=== PATIENT | female | born 1995 | race Caucasian/White ===

== ENCOUNTER 2020-01-13 21:56 | Inpatient (IN) | payer OTHER ==
[2020-01-13] MEDS ORDERED: Sodium Chloride 0.9% 10 ML Syringe FLUSH PRN (22:26)
[2020-01-13] MEDS ORDERED: Lidocaine 1% 50 ML MDV INJECT PRN (22:26)
[2020-01-13] MEDS ORDERED: Carboprost Tromethamine 250 MCG/1 ML Amp IM PRN (22:26)
[2020-01-13] MEDS ORDERED: Nalbuphine 10 MG/1 ML Vial IVPUSH PRN (22:26)
[2020-01-13] MEDS ORDERED: Tranexamic Acid 1,000 MG in Sodium Chloride 0.9% 100 ML IV PRN (22:26)
[2020-01-13] MEDS ORDERED: Misoprostol 200 MCG Tab PO PRN (22:26)
[2020-01-13] MEDS ORDERED: Methylergonovine 0.2 MG/1 ML Amp IM PRN (22:26)
[2020-01-13] MEDS ORDERED: Sodium Chloride 0.9% 2.5 ML Syringe FLUSH PRN (22:26)
[2020-01-13] MEDS ORDERED: Sodium Chloride 0.9% 10 ML SDV IV PRN (22:26)
[2020-01-13] MEDS ORDERED: Water For Irrigation,Sterile 1,000 ML Container IRR PRN (22:26)
[2020-01-13] MEDS ORDERED: Butorphanol 1 MG/ML SDV IVPUSH PRN (22:26)
[2020-01-13] MEDS ORDERED: Oxytocin/0.9 % Sodium Chloride 30 UNIT/500 ML BAG IV SCH (22:30)
[2020-01-13] MEDS ORDERED: Lactated Ringers 1,000 ML IV SCH (22:30)
--- NOTE | 2020-01-13 22:52 | PCM.LDHP ---
L&D History of Present Illness - General Date of Service: 01/13/20 Admit Problem/Dx: Patient Status Order with Admit Dx/Problem 01/13/20 22:26 Patient Status [ADT] Routine Admission Diagnosis/Problem Admission Diagnosis/Problem Source of Information: Patient History Limitations: Reports: No Limitations - History of Present Illness Improves with: Reports: None Worsens with: Reports: None Associated Symptoms: Reports: N - Related Data Allergies/Adverse Reactions: Allergies Allergy/AdvReac Type Severity Reaction Status Date / Time amoxicillin Allergy Rash Verified 10/16/18 18:37 cephalexin [From Keflex] Allergy Rash Verified 10/16/18 18:37 metoclopramide [From Reglan] Allergy Rash Verified 10/16/18 18:37 morphine Allergy Rash Verified 10/16/18 18:37 Home Medications: Home Meds Acetaminophen [Tylenol Extra Strength] 1,000 mg PO Q6HR PRN 10/16/18 [History] Citalopram [Citalopram HBr] 20 mg PO DAILY 10/16/18 [History] Pnv No.103/Folic/Om3s/Fish Oil [ Gummies] 2 tab PO DAILY 10/16/18 [ History] Past Medical History HEENT History: Reports: None Cardiovascular History: Reports: None Respiratory History: Reports: None Gastrointestinal History: Reports: Other (See Below) Other Gastrointestinal History: History of ulcerative colitis with bleeding and had undergone colon removal at 15 y.0. 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 (See Below) Other OB/BYN History: Had PPH with the last delivery Musculoskeletal History: Reports: None Neurological History: Reports: None Psychiatric History: Reports: Anxiety Endocrine/Metabolic History: Reports: None Hematologic History: Reports: Blood Transfusion(s) Immunologic History: Reports: None Oncologic (Cancer) History: Reports: None - Infectious Disease History Infectious Disease History: Reports: None - Past Surgical History Head Surgeries/Procedures: Reports: None HEENT Surgical History: Reports: None Cardiovascular Surgical History: Reports: None Respiratory Surgical History: Reports: None GI Surgical History: Reports: Colon Female Surgical History: Reports: None Neurological Surgical History: Reports: None Musculoskeletal Surgical History: Reports: None Oncologic Surgical History: Reports: None Social & Family History - Family History HEENT: Reports: None Cardiac: Reports: None Respiratory: Reports: None GI: Reports: None : Reports: None OBGYN: Reports: None Musculoskeletal: Reports: None Neurological: Reports: None Psychiatric: Reports: None Endocrine/Metabolic: Reports: None Hematologic: Reports: None Immunologic: Reports: None Dermatologic: Reports: None Oncologic: Reports: Lung, Prostate - Caffeine Use Caffeine Use: Reports: Coffee, Soda H&P Review of Systems - Review of Systems: Review Of Systems: See Below General: Reports: No Symptoms HEENT: Reports: No Symptoms Pulmonary: Reports: No Symptoms Cardiovascular: Reports: No Symptoms Gastrointestinal: Reports: No Symptoms Genitourinary: Reports: No Symptoms Musculoskeletal: Reports: No Symptoms Skin: Reports: No Symptoms Psychiatric: Reports: No Symptoms Neurological: Reports: No Symptoms Hematologic/Lymphatic: Reports: No Symptoms Immunologic: Reports: No Symptoms L&D Exam - Exam Exam: See Below - Vital Signs Weight: 88.451 kg - OB Specific Contraction Intensity: Moderate Movement: Active Heart Tones: Present Presentation: Vertex - Dick Score Dick Score Cervix Position: Anterior Dick Score Consistency: Soft Dick Score Effacement: >80% Dick Score Dilation: > 5 cm Dick Score 's Station: -1 ,0 Dick Score Total: 12 - Exam General: Alert, Oriented HEENT: PERRLA, Conjunctiva Clear, EACs Clear, EOMI, Hearing Intact, Mucosa Moist & [place], Nares Patent, Normal Nasal Septum, Posterior Pharynx Clear, TMs Clear Neck: Supple, Trachea Midline Lungs: Clear to Auscultation, Normal Respiratory Effort Cardiovascular: Regular Rate, Regular Rhythm GI/Abdominal Exam: Normal Bowel Sounds, Soft, Non-Tender, No Organomegaly, No Distention, No Abnormal Bruit, No Mass, Pelvis Stable Rectal Exam: Normal Exam, Normal Rectal Tone Genitourinary: Normal external exam, Normal bimanual exam, Normal speculum exam Back Exam: Normal Inspection, Full Range of Motion Extremities: Normal Inspection, Normal Range of Motion, Non-Tender, No Pedal Edema, Normal Capillary Refill Skin: Warm, Dry, Intact Neurological: Cranial Nerves Intact, Reflexes Equal Bilateral Psychiatric: Alert, Normal Affect, Normal Mood Problem List Initiated/Reviewed/Updated: Yes Orders Last 24hrs: Active Orders 24 hr Category Date Time Status Patient Status [ADT] Routine ADT 01/13/20 22:26 Active Heart Tones [RC] CONTINUOUS Care 01/13/20 22:26 Active Non Stress Test [RC] PER UNIT ROUTINE Care 01/13/20 22:26 Active May Shower [RC] ASDIRECTED Care 01/13/20 22:26 Active Notify Provider [RC] PRN Care 01/13/20 22:26 Active Up ad Aranza [RC] ASDIRECTED Care 01/13/20 22:26 Active Vaginal Exam [RC] PRN Care 01/13/20 22:26 Active Vital Signs [RC] PER UNIT ROUTINE Care 01/13/20 22:26 Active CBC W/O DIFF,HEMOGRAM [HEME] Routine Lab 01/13/20 22:26 Ordered RPR (SYPHILIS SERO) W/ RFLX [REF] Routine Lab 01/13/20 22: Ordered TYPE AND SCREEN [BBK] Routine Lab 01/13/20 22:26 Ordered Butorphanol [Stadol] Med 01/13/20 22:26 Active 1 mg IVPUSH Q1H PRN Carboprost Tromethamine [Hemabate DS] Med 01/13/20 22:26 Active 250 mcg IM ASDIRECTED PRN Lactated Ringers [Ringers, Lactated] 1,000 ml Med 01/13/20 22:30 Active IV ASDIRECTED Lidocaine 1% [Xylocaine 1%] Med 01/13/20 22:26 Active 50 ml INJECT ONETIME PRN Methylergonovine [Methergine] Med 01/13/20 22:26 Active 0.2 mg IM ASDIRECTED PRN Nalbuphine [Nubain] Med 01/13/20 22:26 Active 10 mg IVPUSH Q1H PRN Oxytocin/0.9 % Sodium Chloride [Oxytocin 30 Unit/500 ML Med 01/13/20 22:30 Active -NS] 30 unit in 500 ml IV TITRATE Sodium Chloride 0.9% [Normal Saline] Med 01/13/20 22:26 Active 10 ml IV ASDIRECTED PRN Sodium Chloride 0.9% [Saline Flush] Med 01/13/20 22:26 Active 10 ml FLUSH ASDIRECTED PRN Sodium Chloride 0.9% [Saline Flush] Med 01/13/20 22:26 Active 2.5 ml FLUSH ASDIRECTED PRN Tranexamic Acid [Cyklokapron] 1,000 mg Med 01/13/20 22:26 Active Sodium Chloride 0.9% [Normal Saline] 100 ml IV ONETIME Water For Irrigation,Sterile [Sterile Water for Med 01/13/20 22:26 Active Irrigation] 1,000 ml IRR ASDIRECTED PRN miSOPROStoL [Cytotec] Med 01/13/20 22:26 Active 200 mcg PO ONETIME PRN Scalp Electrode [WOMSER] Per Unit Routine Oth 01/13/20 22:26 Ordered Peripheral IV Insertion Adult [OM.PC] Routine Oth 01/13/20 22:26 Ordered Resuscitation Status Routine Resus Stat 01/13/20 22:26 Ordered Medication Orders Butorphanol Tartrate (Stadol) 1 mg IVPUSH Q1H PRN PRN Reason: Pain Carboprost Tromethamine (Hemabate Ds) 250 mcg IM ASDIRECTED PRN PRN Reason: Post Hemorrhage Lactated Ringer's (Ringers, Lactated) 1,000 mls @ 150 mls/hr IV ASDIRECTED TAVARES Oxytocin/Sodium Chloride (Oxytocin 30 Unit/500 Ml-Ns) 30 unit in 500 mls @ 500 mls/hr IV TITRATE TAVARES Tranexamic Acid 1,000 mg/ (Sodium Chloride) 110 mls @ 660 mls/hr IV ONETIME PRN PRN Reason: Bleeding Lidocaine HCl (Xylocaine 1%) 50 ml INJECT ONETIME PRN PRN Reason: Laceration repair Methylergonovine Maleate (Methergine) 0.2 mg IM ASDIRECTED PRN PRN Reason: Post Hemorrhage Misoprostol (Cytotec) 200 mcg PO ONETIME PRN PRN Reason: Post Hemorrhage Nalbuphine HCl (Nubain) 10 mg IVPUSH Q1H PRN PRN Reason: Pain (severe 7-10) Sodium Chloride (Saline Flush) 10 ml FLUSH ASDIRECTED PRN PRN Reason: Keep Vein Open Sodium Chloride (Saline Flush) 2.5 ml FLUSH ASDIRECTED PRN PRN Reason: Keep Vein Open Sodium Chloride (Normal Saline) 10 ml IV ASDIRECTED PRN PRN Reason: IV Use Sterile Water (Sterile Water For Irrigation) 1,000 ml IRR ASDIRECTED PRN PRN Reason: delivery Assessment/Plan Comment:: IUP term in active labor.
--- NOTE | 2020-01-13 23:02 | PCM.PREANE ---
Preanesthetic Assessment - Anesthesia/Transfusion/Family Hx Anesthesia History: Prior Anesthesia Without Reaction Family History of Anesthesia Reaction: No Transfusion History: Prior Transfusion Without Reaction Type of Transfusion Reactions: Reports: Unknown Intubation History: Unknown - Review of Systems General: No Symptoms Pulmonary: No Symptoms Cardiovascular: No Symptoms Gastrointestinal: No Symptoms Neurological: No Symptoms Other: Reports: None - Physical Assessment Height: 5 ft 10 in Weight: 88.451 kg ASA Class: 2 Mental Status: Alert & Oriented x3 Airway Class: Mallampati = 2 Dentition: Reports: Normal Dentition Thyro-Mental Finger Breadths: 3 Mouth Opening Finger Breadths: 3 ROM/Head Extension: Full Lungs: Clear to Auscultation, Normal Respiratory Effort Cardiovascular: Regular Rate, Regular Rhythm - Allergies Allergies/Adverse Reactions: Allergies Allergy/AdvReac Type Severity Reaction Status Date / Time amoxicillin Allergy Rash Verified 10/16/18 18:37 cephalexin [From Keflex] Allergy Rash Verified 10/16/18 18:37 metoclopramide [From Reglan] Allergy Rash Verified 10/16/18 18:37 morphine Allergy Rash Verified 10/16/18 18:37 - Acknowledgements Anesthesia Type Planned: Spinal, Epidural Pt an Appropriate Candidate for the Planned Anesthesia: Yes Alternatives and Risks of Anesthesia Discussed w Pt/Guardian: Yes Pt/Guardian Understands and Agrees with Anesthesia Plan: Yes PreAnesthesia Questionnaire HEENT History: Reports: None Cardiovascular History: Reports: None Respiratory History: Reports: None Gastrointestinal History: Reports: Other (See Below) Other Gastrointestinal History: History of ulcerative colitis with bleeding and had undergone colon removal at 15 y.0. 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 (See Below) : 5 Para: 4 LMP (Approximate): Other OB/BYN History: Had PPH with the last delivery Musculoskeletal History: Reports: None Neurological History: Reports: None Psychiatric History: Reports: Anxiety Endocrine/Metabolic History: Reports: None Hematologic History: Reports: Blood Transfusion(s) Immunologic History: Reports: None Oncologic (Cancer) History: Reports: None Dermatologic History: Reports: None - Infectious Disease History Infectious Disease History: Reports: None - Past Surgical History Head Surgeries/Procedures: Reports: None HEENT Surgical History: Reports: None Cardiovascular Surgical History: Reports: None Respiratory Surgical History: Reports: None GI Surgical History: Reports: Colon (Resection for UC) Female Surgical History: Reports: None Neurological Surgical History: Reports: None Musculoskeletal Surgical History: Reports: None Oncologic Surgical History: Reports: None - HOME MEDS Home Medications: Home Meds Acetaminophen [Tylenol Extra Strength] 1,000 mg PO Q6HR PRN 10/16/18 [History] Citalopram [Citalopram HBr] 20 mg PO DAILY 10/16/18 [History] Pnv No.103/Folic/Om3s/Fish Oil [ Gummies] 2 tab PO DAILY 10/16/18 [ History] - CURRENT (IN HOUSE) MEDS Current Meds: Current Medications Butorphanol Tartrate (Stadol) 1 mg IVPUSH Q1H PRN PRN Reason: Pain Carboprost Tromethamine (Hemabate Ds) 250 mcg IM ASDIRECTED PRN PRN Reason: Post Hemorrhage Lactated Ringer's (Ringers, Lactated) 1,000 mls @ 150 mls/hr IV ASDIRECTED TAVARES Oxytocin/Sodium Chloride (Oxytocin 30 Unit/500 Ml-Ns) 30 unit in 500 mls @ 500 mls/hr IV TITRATE TAVARES Tranexamic Acid 1,000 mg/ (Sodium Chloride) 110 mls @ 660 mls/hr IV ONETIME PRN PRN Reason: Bleeding Lidocaine HCl (Xylocaine 1%) 50 ml INJECT ONETIME PRN PRN Reason: Laceration repair Methylergonovine Maleate (Methergine) 0.2 mg IM ASDIRECTED PRN PRN Reason: Post Hemorrhage Misoprostol (Cytotec) 200 mcg PO ONETIME PRN PRN Reason: Post Hemorrhage Nalbuphine HCl (Nubain) 10 mg IVPUSH Q1H PRN PRN Reason: Pain (severe 7-10) Sodium Chloride (Saline Flush) 10 ml FLUSH ASDIRECTED PRN PRN Reason: Keep Vein Open Sodium Chloride (Saline Flush) 2.5 ml FLUSH ASDIRECTED PRN PRN Reason: Keep Vein Open Sodium Chloride (Normal Saline) 10 ml IV ASDIRECTED PRN PRN Reason: IV Use Sterile Water (Sterile Water For Irrigation) 1,000 ml IRR ASDIRECTED PRN PRN Reason: delivery
[2020-01-13] MEDS ORDERED: fentaNYL 100 MCG/2 ML SDV ONE (23:07)
--- NOTE | 2020-01-14 01:31 | OR ---
SURGEON: Antonio Lomax MD DATE OF PROCEDURE: Ms. Milton is 24 years old. She is para 4-0-0-4. She was 39 plus weeks. She was followed in our clinic primarily by our nurse engineering production liaison. The patient had no complication, and her GBS status is negative. She is admitted in active labor. At the time of the admission, she is 7 cm, complete, vertex, and -3. The patient is having regular contractions. She had an intrathecal anesthesia for labor analgesia, and she had an artificial rupture of the membrane by me with meconium-stained amniotic fluid noted, and the patient became complete-complete and proceeded to push, and she accomplished normal spontaneous vaginal delivery of a female fetus, cried immediately. scores reported to be 8 and 9. The weight is not available. The perineum was intact. There was no need for episiotomy. The placenta delivered without any problem. Estimated blood loss 250 to 300 mL. There were no complications. The heart rate was category I. There was no complication in the process of labor and delivery in this patient. ETHAN / TAWANDA /[id number]
[2020-01-14] MEDS ORDERED: Docusate Sodium 100 MG Cap PO PRN (02:16)
[2020-01-14] MEDS ORDERED: Lanolin 100% Cream 7 GM Tube TOP PRN (02:16)
[2020-01-14] MEDS ORDERED: Ibuprofen 400 MG Tab PO PRN (02:16)
[2020-01-14] MEDS ORDERED: Witch Hazel Medicated Pads 40/Jar TOP PRN (02:16)
[2020-01-14] MEDS ORDERED: Acetaminophen 500 MG Tab PO PRN ×2 (02:16)
[2020-01-14] MEDS ORDERED: Benzocaine/Menthol 20%-0.5% Spray 78 GM Cannister TOP PRN (02:16)
[2020-01-14] MEDS ORDERED: Bisacodyl 10 MG Supp RECTAL PRN (02:16)
[2020-01-14] MEDS: Ibuprofen 800 MG Tab PO PRN ×3 (04:46→16:24)
--- NOTE | 2020-01-14 07:23 | PCM48HPAN ---
Post Anesthesia Note - EVALUATION WITHIN 48HRS OF ANESTHETIC Vital Signs in Normal Range: Yes Patient Participated in Evaluation: Yes Respiratory Function Stable: Yes Airway Patent: Yes Cardiovascular Function Stable: Yes Hydration Status Stable: Yes Pain Control Satisfactory: Yes Nausea and Vomiting Control Satisfactory: Yes Mental Status Recovered: Yes Vital Signs: Last Vital Signs Temp 97.9 F 01/14/20 04:45 Pulse 64 01/14/20 04:45 Resp 16 01/14/20 04:45 BP 110/61 01/14/20 04:45 Pulse Ox 97 01/14/20 04:45
--- NOTE | 2020-01-14 09:00 | PCM.SN ---
- Free Text/Narrative Note: Karine is a 24 yo S/P an uncomplicated 01/14/2020 @ 0002 to a viable and vigorous NBF who is EBFing without issues/problems/concerns. O+/RI/ GBS neg. Patient is resting comfortably in bed with spouse, at bedside in bassinet. VSS, ROS consistent with normal course. Vaginal bleeding, moderate rubra, no clots. No SOB, HAs, chest pain, edema, or other problems or concerns. Mild uterine cramping alleviated by ibuprofen and rest. Patient eating, voiding, ambulating independently. Patient has not questions, comments, or concerns at this time. Plan to continue normal plan of care and D/C home in am.
[2020-01-15] MEDS: Ibuprofen 800 MG Tab PO PRN ×2 (00:33→08:01)
--- NOTE | 2020-01-15 08:03 | PCM.DCSUM1 ---
Discharge Summary - Hospital Course Free Text/Narrative:: Discharge home with . Follow up in 6 weeks for visit. Diagnosis: Stroke: No Modified Lamoure Scale: No Symptoms at All Modified Yan Scale Score: 0 - Discharge Data Discharge Date: 01/15/20 Discharge Disposition: Home, Self-Care 01 Condition: Good - Referral to Home Health Primary Care Physician: PCP None - Discharge Diagnosis/Problem(s) (1) (normal spontaneous vaginal delivery) SNOMED Code(s): 89389210, [id number] ICD Code: O80 - ENCOUNTER FOR FULL-TERM UNCOMPLICATED DELIVERY Status: Acute Priority: High Current Visit: No (2) Supervision of normal IUP (intrauterine ) in multigravida SNOMED Code(s): 781597928, 891289592, 911541108 ICD Code: Z34.80 - ENCOUNTER FOR SUPRVSN OF NORMAL , UNSP TRIMESTER Status: Acute Priority: High Current Visit: No Qualifiers: Trimester: third trimester Qualified Code(s): Z34.83 - Encounter for supervision of other normal , third trimester - Patient Instructions Diet: Usual Diet as Tolerated Activity: As Tolerated, No Strenuous Activities, Rest and Relax Today Driving: May Drive Today Showering/Bathing: May Shower Notify Provider of: Fever, Increased Pain, Swelling and Redness, Nausea and/or Vomiting Other/Special Instructions: Discharge home with . Follow up in 6 weeks for visit. - Discharge Plan *PRESCRIPTION DRUG MONITORING PROGRAM REVIEWED*: Not Applicable *COPY OF PRESCRIPTION DRUG MONITORING REPORT IN PATIENT BUBBA: Not Applicable Home Medications: Home Meds Acetaminophen [Tylenol Extra Strength] 1,000 mg PO Q6HR PRN 10/16/18 [History] Citalopram [Citalopram HBr] 20 mg PO DAILY 10/16/18 [History] Pnv No.103/Folic/Om3s/Fish Oil [ Gummies] 2 tab PO DAILY 10/16/18 [ History] Referrals: [facility] [Outside] Antonio Lomax MD [Physician] - 02/25/20 1:30 pm - Discharge Summary/Plan Comment DC Time >30 min.: Yes - General Info Date of Service: 01/15/20 Admission Dx/Problem (Free Text: Patient Status Order with Admit Dx/Problem 01/13/20 22:26 Patient Status [ADT] Routine Admission Diagnosis/Problem Admission Diagnosis/Problem Functional Status: Reports: Pain Controlled, Tolerating Diet, Ambulating, Urinating - Review of Systems General: Reports: No Symptoms HEENT: Reports: No Symptoms Pulmonary: Reports: No Symptoms Cardiovascular: Reports: No Symptoms Gastrointestinal: Reports: No Symptoms Genitourinary: Reports: No Symptoms Musculoskeletal: Reports: No Symptoms Skin: Reports: No Symptoms Neurological: Reports: No Symptoms Psychiatric: Reports: No Symptoms - Patient Data Vitals - Most Recent: Last Vital Signs Temp 36.4 C 01/15/20 05:01 Pulse 76 01/15/20 05:01 Resp 16 01/15/20 05:01 BP 109/68 01/15/20 05:01 Pulse Ox 97 01/15/20 05:01 Weight - Most Recent: 88.451 kg Lab Results - Last 24 hrs: Laboratory Results - last 24 hr 01/15/20 Range/Units 05:33 Hgb 9.7 L (12.0-16.0) g/dL Hct 29.7 L (36.0-46.0) % Med Orders - Current: Current Medications Acetaminophen (Tylenol Extra Strength) 500 mg PO Q4H PRN PRN Reason: Pain Acetaminophen (Tylenol Extra Strength) 1,000 mg PO Q4H PRN PRN Reason: Pain Benzocaine/Menthol (Dermoplast Pain Relief 20%-0.5% Joshua) 78 gm TOP ASDIRECTED PRN PRN Reason: Perineal Comfort Measure Bisacodyl (Dulcolax) 10 mg RECTAL ONETIME PRN PRN Reason: Constipation Docusate Sodium (Colace) 100 mg PO BID PRN PRN Reason: Constipation Emollient Ointment (Lansinoh Hpa) 0 gm TOP ASDIRECTED PRN PRN Reason: Sore Nipples Ibuprofen (Motrin) 400 mg PO Q4H PRN PRN Reason: Pain Ibuprofen (Motrin) 800 mg PO Q6H PRN PRN Reason: Pain Last Admin: 01/15/20 00:33 Dose: 800 mg Witch Chelle (Tucks) 1 pad TOP ASDIRECTED PRN PRN Reason: comfort care Discontinued Medications Butorphanol Tartrate (Stadol) 1 mg IVPUSH Q1H PRN PRN Reason: Pain Stop: 01/14/20 00:05 Carboprost Tromethamine (Hemabate Ds) 250 mcg IM ASDIRECTED PRN PRN Reason: Post Hemorrhage Stop: 01/14/20 00:05 Fentanyl (Sublimaze) Confirm Administered Dose 100 mcg .ROUTE .STK-MED ONE Stop: 01/13/20 23:08 Lactated Ringer's (Ringers, Lactated) 1,000 mls @ 150 mls/hr IV ASDIRECTED TAVARES Stop: 01/14/20 00:05 Last Admin: 01/13/20 22:42 Dose: 999 mls/hr Oxytocin/Sodium Chloride (Oxytocin 30 Unit/500 Ml-Ns) 30 unit in 500 mls @ 500 mls/hr IV TITRATE TAVARES Stop: 01/14/20 00:05 Last Admin: 01/14/20 00:05 Dose: 500 mls/hr Tranexamic Acid 1,000 mg/ (Sodium Chloride) 110 mls @ 660 mls/hr IV ONETIME PRN PRN Reason: Bleeding Stop: 01/14/20 00:05 Lidocaine HCl (Xylocaine 1%) 50 ml INJECT ONETIME PRN PRN Reason: Laceration repair Stop: 01/14/20 00:05 Methylergonovine Maleate (Methergine) 0.2 mg IM ASDIRECTED PRN PRN Reason: Post Hemorrhage Stop: 01/14/20 00:05 Misoprostol (Cytotec) 200 mcg PO ONETIME PRN PRN Reason: Post Hemorrhage Stop: 01/14/20 00:05 Nalbuphine HCl (Nubain) 10 mg IVPUSH Q1H PRN PRN Reason: Pain (severe 7-10) Stop: 01/14/20 00:05 Sodium Chloride (Saline Flush) 10 ml FLUSH ASDIRECTED PRN PRN Reason: Keep Vein Open Stop: 01/14/20 00:05 Sodium Chloride (Saline Flush) 2.5 ml FLUSH ASDIRECTED PRN PRN Reason: Keep Vein Open Stop: 01/14/20 00:05 Sodium Chloride (Normal Saline) 10 ml IV ASDIRECTED PRN PRN Reason: IV Use Stop: 01/14/20 00:05 Sterile Water (Sterile Water For Irrigation) 1,000 ml IRR ASDIRECTED PRN PRN Reason: delivery Stop: 01/14/20 00:05 - Exam General: Reports: Alert, Oriented, Cooperative, No Acute Distress Lungs: Reports: Clear to Auscultation, Normal Respiratory Effort Cardiovascular: Reports: Regular Rate, Regular Rhythm GI/Abdominal Exam: Soft, Non-Tender (Female) Exam: Deferred, Vaginal Bleeding Rectal (Female) Exam: Deferred Back Exam: Reports: Normal Inspection, Full Range of Motion Extremities: Normal Inspection, Normal Range of Motion, Non-Tender, No Pedal Edema Skin: Reports: Warm, Dry, Intact Neurological: Reports: No New Focal Deficit, Normal Speech, Normal Tone, Strength Equal Bilateral, Sensation Intact Psy/Mental Status: Reports: Alert, Normal Affect, Normal Mood
== END 2020-01-15 13:18 | disposition home or self-care (01) | DRG 807 ==
LOC: MW.OBCHECK 21:56 → MW.OB 22:26 → OBSVTOIN 01-14 00:02 → MW.OB 01-14 03:20
PROVIDERS: ADMIT Obstetrics & Gynecology; ATTEND Obstetrics & Gynecology
PROC: 10E0XZZ Delivery of Products of Conception, External Approach (ICD-10-PCS; principal; 2020-01-14)
PROC: 10907ZC Drainage of Amniotic Fluid, Therapeutic from Products of Conception, Via Natural or Artificial Opening (ICD-10-PCS; 2020-01-14)
PROC: 3E0R3BZ Introduction of Anesthetic Agent into Spinal Canal, Percutaneous Approach (ICD-10-PCS; 2020-01-14)
DX: O99.344 Other mental disorders complicating childbirth (principal); Z37.0 Single live birth; F41.9 Anxiety disorder, unspecified; O77.0 Labor and delivery complicated by meconium in amniotic fluid; Z3A.39 39 weeks gestation of pregnancy
CPT/HCPCS: 01967; 36415; 51701; 59025; 59409; 85014; 85018; 85027; 86592; 86850; 86870; 86900; 86901; 86902; 86920; 86921; 86922; A9270-GY; J2590; J3010; J7120

== ENCOUNTER 2021-09-28 05:19 | Inpatient (IN) | payer BC ==
--- NOTE | 2021-09-28 05:43 | PCM.LDHP ---
L&D History of Present Illness - General Date of Service: 09/28/21 Admit Problem/Dx: Admission Diagnosis/Problem Admission Diagnosis/Problem Source of Information: Patient History Limitations: Reports: No Limitations - History of Present Illness Improves with: Reports: None Worsens with: Reports: None Associated Symptoms: Reports: N - Related Data Allergies/Adverse Reactions: Allergies Allergy/AdvReac Type Severity Reaction Status Date / Time amoxicillin Allergy Rash Verified 10/16/18 18:37 cephalexin [From Keflex] Allergy Rash Verified 10/16/18 18:37 metoclopramide [From Reglan] Allergy Rash Verified 10/16/18 18:37 morphine Allergy Rash Verified 10/16/18 18:37 Home Medications: Home Meds Acetaminophen [Tylenol Extra Strength] 1,000 mg PO Q6HR PRN 10/16/18 [History] Citalopram [Citalopram HBr] 20 mg PO DAILY 10/16/18 [History] Pnv No.103/Folic/Om3s/Fish Oil [ Gummies] 2 tab PO DAILY 10/16/18 [History] Past Medical History HEENT History: Reports: Impaired Vision Cardiovascular History: Reports: None Respiratory History: Reports: None Gastrointestinal History: Reports: Other (See Below) Other Gastrointestinal History: History of ulcerative colitis with bleeding and had undergone colon removal at 15 y.0. Genitourinary History: Reports: None LEAD COOK History: Reports: , Other (See Below) Other OB/BYN History: Had PPH with the last delivery Musculoskeletal History: Reports: None Neurological History: Reports: Migraines Psychiatric History: Reports: Anxiety Endocrine/Metabolic History: Reports: None Hematologic History: Reports: Blood Transfusion(s) Immunologic History: Reports: None Oncologic (Cancer) History: Reports: None Dermatologic History: Reports: None - Infectious Disease History Infectious Disease History: Reports: Chicken Pox - Past Surgical History Head Surgeries/Procedures: Reports: None HEENT Surgical History: Reports: None Cardiovascular Surgical History: Reports: None Respiratory Surgical History: Reports: None GI Surgical History: Reports: Colon Female Surgical History: Reports: None Neurological Surgical History: Reports: None Musculoskeletal Surgical History: Reports: None Oncologic Surgical History: Reports: None Social & Family History - Family History HEENT: Reports: None Cardiac: Reports: Heart Murmur Respiratory: Reports: None GI: Reports: None : Reports: None OBGYN: Reports: Musculoskeletal: Reports: None Neurological: Reports: Dementia, Migraines Psychiatric: Reports: ADD, Anxiety, Depression Endocrine/Metabolic: Reports: None Hematologic: Reports: None Immunologic: Reports: None Dermatologic: Reports: None Oncologic: Reports: Lung, Prostate - Caffeine Use Caffeine Use: Reports: Coffee, Soda H&P Review of Systems - Review of Systems: Review Of Systems: See Below General: Reports: No Symptoms HEENT: Reports: No Symptoms Pulmonary: Reports: No Symptoms Cardiovascular: Reports: No Symptoms Gastrointestinal: Reports: No Symptoms Genitourinary: Reports: No Symptoms Musculoskeletal: Reports: No Symptoms Skin: Reports: No Symptoms Psychiatric: Reports: No Symptoms Neurological: Reports: No Symptoms Hematologic/Lymphatic: Reports: No Symptoms Immunologic: Reports: No Symptoms L&D Exam - Exam Exam: See Below - OB Specific Contraction Intensity: Moderate Movement: Active Heart Tones: Present Presentation: Vertex - Dick Score Dick Score Cervix Position: Anterior Dick Score Consistency: Soft Dick Score Effacement: >80% Dick Score Dilation: > 5 cm Dick Score 's Station: -2 Dick Score Total: 11 - Exam General: Alert, Oriented HEENT: PERRLA, Conjunctiva Clear, EACs Clear, EOMI, Hearing Intact, Mucosa Moist & [place], Nares Patent, Normal Nasal Septum, Posterior Pharynx Clear, TMs Clear Neck: Supple, Trachea Midline Lungs: Clear to Auscultation, Normal Respiratory Effort Cardiovascular: Regular Rate, Regular Rhythm GI/Abdominal Exam: Normal Bowel Sounds, Soft, Non-Tender, No Organomegaly, No Distention, No Abnormal Bruit, No Mass, Pelvis Stable Rectal Exam: Normal Exam, Normal Rectal Tone Genitourinary: Normal external exam, Normal bimanual exam, Normal speculum exam Back Exam: Normal Inspection, Full Range of Motion Extremities: Normal Inspection, Normal Range of Motion, Non-Tender, No Pedal Edema, Normal Capillary Refill Skin: Warm, Dry, Intact Neurological: Cranial Nerves Intact, Reflexes Equal Bilateral Psychiatric: Alert, Normal Affect, Normal Mood Problem List Initiated/Reviewed/Updated: Yes Assessment/Plan Comment:: Term in active labor.
[2021-09-28] MEDS: Lactated Ringers 1,000 ML IV SCH ×3 (05:50→09:36)
[2021-09-28] MEDS ORDERED: Lidocaine 1% 50 ML MDV INJECT PRN (05:56)
[2021-09-28] MEDS ORDERED: Nalbuphine 10 MG/1 ML Vial IVPUSH PRN (05:56)
[2021-09-28] MEDS ORDERED: Misoprostol 200 MCG Tab PO PRN (05:56)
[2021-09-28] MEDS ORDERED: Sodium Chloride 0.9% 20 ML SDV IV PRN (05:56)
[2021-09-28] MEDS ORDERED: Methylergonovine 0.2 MG/1 ML Amp IM PRN (05:56)
[2021-09-28] MEDS ORDERED: Carboprost Tromethamine 250 MCG/1 ML Amp IM PRN (05:56)
[2021-09-28] MEDS ORDERED: Sodium Chloride 0.9% 2.5 ML Syringe FLUSH PRN (05:56)
[2021-09-28] MEDS ORDERED: Ondansetron 4 MG/2 ML SDV IVPUSH PRN (05:56)
[2021-09-28] MEDS ORDERED: Water For Irrigation,Sterile 1,000 ML Container IRR PRN (05:56)
[2021-09-28] MEDS ORDERED: Sodium Chloride 0.9% 10 ML Syringe FLUSH PRN (05:56)
[2021-09-28] MEDS ORDERED: Butorphanol 1 MG/ML SDV IVPUSH PRN (05:56)
[2021-09-28] MEDS ORDERED: Tranexamic Acid 1,000 MG in Sodium Chloride 0.9% 100 ML IV PRN (05:56)
[2021-09-28] MEDS ORDERED: Oxytocin/0.9 % Sodium Chloride 30 UNIT/500 ML BAG IV SCH (06:00)
[2021-09-28] MEDS ORDERED: Oxytocin/0.9 % Sodium Chloride 30 UNIT/500 ML BAG ONE (06:01)
[2021-09-28] MEDS ORDERED: Ropivacaine HCl/PF 200 ML ONE (07:04)
--- NOTE | 2021-09-28 08:16 | PCM.PREANE ---
Preanesthetic Assessment - Anesthesia/Transfusion/Family Hx Anesthesia History: Prior Anesthesia Without Reaction Family History of Anesthesia Reaction: No Transfusion History: No Prior Transfusion(s) Type of Transfusion Reactions: Reports: Unknown Intubation History: Unknown - Review of Systems General: No Symptoms Pulmonary: No Symptoms Cardiovascular: No Symptoms Gastrointestinal: No Symptoms Neurological: No Symptoms Other: Reports: None - Physical Assessment NPO Status Date: 09/28/21 NPO Status Time: 00:00 Height: 1.78 m Weight: 100.698 kg ASA Class: 2 Mental Status: Alert & Oriented x3 Airway Class: Mallampati = 2 Dentition: Reports: Normal Dentition Thyro-Mental Finger Breadths: 3 Mouth Opening Finger Breadths: 3 ROM/Head Extension: Full Lungs: Clear to Auscultation, Normal Respiratory Effort Cardiovascular: Regular Rate, Regular Rhythm - Lab Values: Laboratory Last Values WBC 10.12 K/uL (4.0-11.0) 09/28/21 05:45 RBC 4.32 M/uL (4.30-5.90) 09/28/21 05:45 Hgb 10.7 g/dL (12.0-16.0) L 09/28/21 05:45 Hct 33.4 % (36.0-46.0) L 09/28/21 05:45 MCV 77.3 fL (80.0-98.0) L 09/28/21 05:45 MCH 24.8 pg (27.0-32.0) L 09/28/21 05:45 MCHC 32.0 g/dL (31.0-37.0) 09/28/21 05:45 RDW Std Deviation 39.3 fl (28.0-62.0) 09/28/21 05:45 RDW Coeff of Henry 14 % (11.0-15.0) 09/28/21 05:45 Plt Count 225 K/uL (150-400) 09/28/21 05:45 MPV 10.20 fL (7.40-12.00) 09/28/21 05:45 Nucleated RBC % 0.0 /100WBC 09/28/21 05:45 Nucleated RBCs # 0 K/uL 09/28/21 05:45 SARS-CoV-2 RNA (GIOVANA) NEGATIVE (NEGATIVE) 09/28/21 05:50 Blood Type O POSITIVE 09/28/21 05:45 Antibody Screen NEGATIVE 09/28/21 05:45 Antigen Typing Cancelled 09/28/21 05:45 Crossmatch See Detail 09/28/21 05:45 - Allergies Allergies/Adverse Reactions: Allergies Allergy/AdvReac Type Severity Reaction Status Date / Time amoxicillin Allergy Rash Verified 09/28/21 05:56 cephalexin [From Keflex] Allergy Rash Verified 09/28/21 05:56 metoclopramide [From Reglan] Allergy Rash Verified 09/28/21 05:56 morphine Allergy Rash Verified 09/28/21 05:56 - Blood Blood Available: Yes Product(s) Available: PRBC (Type and screen) - Anesthesia Plan Pre-Op Medication Ordered: None - Acknowledgements Anesthesia Type Planned: Epidural Pt an Appropriate Candidate for the Planned Anesthesia: Yes Alternatives and Risks of Anesthesia Discussed w Pt/Guardian: Yes Pt/Guardian Understands and Agrees with Anesthesia Plan: Yes PreAnesthesia Questionnaire HEENT History: Reports: Impaired Vision Cardiovascular History: Reports: None Respiratory History: Reports: None Gastrointestinal History: Reports: Other (See Below) Other Gastrointestinal History: History of ulcerative colitis with bleeding and had undergone colon removal at 15 y.0. Genitourinary History: Reports: None [employer] History: Reports: , Other (See Below) Other OB/BYN History: Had PPH with the last delivery Musculoskeletal History: Reports: None Neurological History: Reports: Migraines Psychiatric History: Reports: Anxiety Other Psychiatric History: Celexa 20mg po daily last taken 09/27/21 @ 2200 Endocrine/Metabolic History: Reports: None Hematologic History: Reports: Blood Transfusion(s) Other Hematologic History: 2011 with colon surgery Immunologic History: Reports: None Oncologic (Cancer) History: Reports: None Dermatologic History: Reports: None - Infectious Disease History Infectious Disease History: Reports: Chicken Pox - Past Surgical History Head Surgeries/Procedures: Reports: None HEENT Surgical History: Reports: None Cardiovascular Surgical History: Reports: None Respiratory Surgical History: Reports: None GI Surgical History: Reports: Colon Female Surgical History: Reports: None Neurological Surgical History: Reports: None Musculoskeletal Surgical History: Reports: None Oncologic Surgical History: Reports: None - SUBSTANCE USE Tobacco Use Status *Q: Never Tobacco User Tobacco Use Within Last Twelve Months: No Second Hand Smoke Exposure: No Recreational Drug Use History: No - HOME MEDS Home Medications: Home Meds Acetaminophen [Tylenol Extra Strength] 1,000 mg PO Q6HR PRN 10/16/18 [History] Citalopram [Citalopram HBr] 20 mg PO DAILY 10/16/18 [History] Pnv No.103/Folic/Om3s/Fish Oil [ Gummies] 2 tab PO DAILY 10/16/18 [History] - CURRENT (IN HOUSE) MEDS Current Meds: Current Medications Butorphanol Tartrate (Butorphanol 1 Mg/Ml Sdv) 1 mg IVPUSH Q1H PRN PRN Reason: Pain (severe 7-10) Carboprost Tromethamine (Carboprost Tromethamine 250 Mcg/1 Ml Amp) 250 mcg IM ASDIRECTED PRN PRN Reason: Post Hemorrhage Oxytocin/Sodium Chloride (Oxytocin 30 Unit In Ns 0.9% 500 Ml Premix) 30 unit in 500 mls @ 500 mls/hr IV TITRATE TAVARES Tranexamic Acid 1,000 mg/ (Sodium Chloride) 110 mls @ 660 mls/hr IV ONETIME PRN PRN Reason: Bleeding Lactated Ringer's (Ringers, Lactated) 1,000 mls @ 150 mls/hr IV ASDIRECTED TAVARES Last Admin: 09/28/21 06:53 Dose: 999 mls/hr Documented by: Lidocaine HCl (Lidocaine 1% 50 Ml Mdv) 50 ml INJECT ONETIME PRN PRN Reason: Laceration repair Methylergonovine Maleate (Methylergonovine 0.2 Mg/1 Ml Amp) 0.2 mg IM ASDIRECTED PRN PRN Reason: Post Hemorrhage Misoprostol (Misoprostol 200 Mcg Tab) 200 mcg PO ONETIME PRN PRN Reason: Post Hemorrhage Nalbuphine HCl (Nalbuphine 10 Mg/1 Ml Vial) 10 mg IVPUSH Q1H PRN PRN Reason: Pain (severe 7-10) Ondansetron HCl (Ondansetron 4 Mg/2 Ml Sdv) 4 mg IVPUSH Q4H PRN PRN Reason: Nausea/Vomiting Last Admin: 09/28/21 07:29 Dose: 4 mg Documented by: Sodium Chloride (Sodium Chloride 0.9% 10 Ml Syringe) 10 ml FLUSH ASDIRECTED PRN PRN Reason: Keep Vein Open Sodium Chloride (Sodium Chloride 0.9% 2.5 Ml Syringe) 2.5 ml FLUSH ASDIRECTED PRN PRN Reason: Keep Vein Open Sodium Chloride (Sodium Chloride 0.9% 20 Ml Sdv) 10 ml IV ASDIRECTED PRN PRN Reason: IV Use Sterile Water (Water For Irrigation,Sterile 1,000 Ml Container) 1,000 ml IRR ASDIRECTED PRN PRN Reason: delivery Discontinued Medications Oxytocin/Sodium Chloride (Oxytocin 30 Unit In Ns 0.9% 500 Ml Premix) Confirm Administered Dose 30 unit in 500 mls @ as directed .ROUTE .[facility]-MED ONE Stop: 09/28/21 06:02 Ropivacaine (Naropin 0.2%) Confirm Administered Dose 200 mls @ as [facility] Stop: 09/28/21 07:05
--- NOTE | 2021-09-28 08:25 | PCM.SN.2 ---
Time Documentation - Pre-Procedure Checklist Attending Provider Aware: Yes Chart Reviewed: Yes Consent Signed: Yes Labs Reviewed: Yes VS/FHR Reviewed: Yes Patient Identification Confirmation Method: Reports: Chart Visual, Verbal Patient Pt an Appropriate Candidate for the Planned Anesthesia: Yes Alternatives and Risks of Anesthesia Discussed w Pt/Guardian: Yes - Procedure Procedure Start Date: 09/28/21 Procedure Start Time: 06:[address]: Reports: Blood Pressure, Heart Rate, SPO2 Functional IV: Yes Safety Measures: Reports: Patient Identified, Procedure Verified, Site Verified, Procedure Time Out Patient Position: Reports: Sitting Prep: Reports: Betadine x3 Local Anesthetic: Reports: Intradermal Wheal w Lidocaine 1% (3 ml) Regional Placement Level: Reports: L3-4 Needle: Reports: 17 g Touhy Approach: Reports: Midline Technique: Reports: CARL Glass Syringe CARL Needle Depth (cm): 7 cm Parasthesia: Reports: None Fluid Obtained: Reports: None Catheter Depth at Skin (cm): 15 cm Test Dose Time: 06:59 Test Dose Medication: Reports: Lidocaine 1.5% w Epinephrine 1:200,000 (5 ml) Test Dose Response: Reports: Negative Loading Dose Time: 07:06 Loading Dose Medication: Ropivicaine 0.2% Loading Dose Patient Position: Supine Continuous Infusion Start Time: 07:07 Continuous Infusion Medication: Ropivicaine 0.2% Continuous Infusion Rate: 12 Continuous Infusion PCS Bolus Option: 6 Continuous Infusion Lockout Dose (cc/hr): 15 Patient Position Post Placement: Reports: [place]pline/KATI Post-procedure Pain Level: 3 Level Achieved: T6 VS and FHR Monitored in Unit Post Placement: Yes Procedure End Date: 09/28/21 Procedure End Time: 07:36 Procedure Comment: Sterile technique used throughout.
[2021-09-28] MEDS ORDERED: ePHEDrine 50 MG/ML SDV IVPUSH PRN (08:29)
--- NOTE | 2021-09-28 08:29 | PCM.POSTAN ---
POST ANESTHESIA ASSESSMENT - MENTAL STATUS Mental Status: Alert, Oriented - RESPIRATORY Respiratory Status: Respiratory Rate WNL, Airway Patent, O2 Saturation Stable - CARDIOVASCULAR CV Status: Pulse Rate WNL, Blood Pressure Stable - GASTROINTESTINAL GI Status: No Symptoms - POST OP HYDRATION Hydration Status: Adequate & Stable
[2021-09-28] MEDS ORDERED: Ropivacaine 0.2% 2MG/ML 200 ML Bag EPIDUR SCH (08:45)
[2021-09-28] MEDS ORDERED: Acetaminophen 500 MG Tab PO PRN ×2 (10:30)
[2021-09-28] MEDS ORDERED: Lanolin 100% Cream 7 GM Tube TOP PRN (10:30)
[2021-09-28] MEDS ORDERED: Bisacodyl 10 MG Supp RECTAL PRN (10:30)
[2021-09-28] MEDS ORDERED: Ibuprofen 400 MG Tab PO PRN (10:30)
[2021-09-28] MEDS ORDERED: Witch Hazel Medicated Pads 40/Jar TOP PRN (10:30)
[2021-09-28] MEDS ORDERED: oxyCODONE 5 MG Tab PO PRN (10:30)
[2021-09-28] MEDS ORDERED: Benzocaine/Menthol 20%-0.5% Spray 78 GM Cannister TOP PRN (10:30)
[2021-09-28] MEDS ORDERED: Docusate Sodium 100 MG Cap PO PRN (10:30)
[2021-09-28] MEDS: Ibuprofen 800 MG Tab PO PRN ×2 (10:54→17:05)
[2021-09-28] MEDS ORDERED: Misoprostol 200 MCG Tab ONE (12:17)
[2021-09-28] MEDS ORDERED: ceFAZolin 1 GM in Premix Bag 1 BAG IV ONE (12:40)
[2021-09-28] MEDS ORDERED: Misoprostol 200 MCG Tab RECTAL ONE (12:45)
[2021-09-29] MEDS: Ibuprofen 800 MG Tab PO PRN ×2 (03:25→09:04)
--- NOTE | 2021-09-29 09:24 | PCM.DCSUM1 ---
Discharge Summary - Hospital Course Diagnosis: Stroke: No - Discharge Data Discharge Date: 09/29/21 Discharge Disposition: Home, Self-Care 01 Condition: Good - Referral to Home Health Primary Care Physician: PCP None - Patient Instructions Diet: Usual Diet as Tolerated Activity: As Tolerated Driving: Do Not Drive Showering/Bathing: May Shower Notify Provider of: Fever, Increased Pain, Nausea and/or Vomiting - Discharge Plan Home Medications: Home Meds Acetaminophen [Tylenol Extra Strength] 1,000 mg PO Q6HR PRN 10/16/18 [History] Citalopram [Citalopram HBr] 20 mg PO DAILY 10/16/18 [History] Pnv No.103/Folic/Om3s/Fish Oil [ Gummies] 2 tab PO DAILY 10/16/18 [History] Referrals: Antonio Lomax MD [Physician] - 11/09/21 1:30 pm - Discharge Summary/Plan Comment DC Time >30 min.: Yes Total # of Minutes for Discharge Time: 30 - General Info Date of Service: 09/29/21 Functional Status: Reports: Pain Controlled - Review of Systems General: Reports: No Symptoms HEENT: Reports: No Symptoms Pulmonary: Reports: No Symptoms Cardiovascular: Reports: No Symptoms Gastrointestinal: Reports: No Symptoms Genitourinary: Reports: No Symptoms Musculoskeletal: Reports: No Symptoms Skin: Reports: No Symptoms Neurological: Reports: No Symptoms Psychiatric: Reports: No Symptoms - Patient Data Vitals - Most Recent: Last Vital Signs Temp 36.2 C 09/29/21 07:40 Pulse 67 09/29/21 07:40 Resp 14 09/29/21 07:40 BP 108/61 09/29/21 07:40 Pulse Ox 98 09/29/21 07:40 Weight - Most Recent: 100.698 kg I&O - Last 24 hours: Intake & Output 09/28/21 09/29/21 09/29/21 22:59 06:59 14:59 Output Total 903 Balance -903 Lab Results - Last 24 hrs: Laboratory Results - last 24 hr 09/29/21 Range/Units 06:40 Hgb 8.7 L (12.0-16.0) g/dL Hct 28.0 L (36.0-46.0) % Med Orders - Current: Current Medications Acetaminophen (Acetaminophen 500 Mg Tab) 500 mg PO Q4H PRN PRN Reason: Pain (mild 1-3) Acetaminophen (Acetaminophen 500 Mg Tab) 1,000 mg PO Q4H PRN PRN Reason: Pain (mild 1-3) Benzocaine/Menthol (Benzocaine/Menthol 20%-0.5% [place] 78 Gm Cannister) 78 gm TOP ASDIRECTED PRN PRN Reason: Perineal Comfort Measure Bisacodyl (Bisacodyl 10 Mg Supp) 10 mg RECTAL ONETIME PRN PRN Reason: Constipation Butorphanol Tartrate (Butorphanol 1 Mg/Ml Sdv) 1 mg IVPUSH Q1H PRN PRN Reason: Pain (severe 7-10) Last Admin: 09/28/21 12:27 Dose: 1 mg Documented by: Carboprost Tromethamine (Carboprost Tromethamine 250 Mcg/1 Ml Amp) 250 mcg IM ASDIRECTED PRN PRN Reason: Post Hemorrhage Docusate Sodium (Docusate Sodium 100 Mg Cap) 100 mg PO Q12H PRN PRN Reason: Constipation Emollient Ointment (Lanolin 100% Cream 7 Gm Tube) 0 gm TOP ASDIRECTED PRN PRN Reason: Sore Nipples Ephedrine Sulfate (Ephedrine 50 Mg/Ml Sdv) 10 mg IVPUSH Q1M PRN PRN Reason: Hypotension Oxytocin/Sodium Chloride (Oxytocin 30 Unit In Ns 0.9% 500 Ml Premix) 30 unit in 500 mls @ 500 mls/hr IV TITRATE [facility] Last Admin: 09/28/21 09:36 Dose: 500 mls/hr Documented by: Tranexamic Acid 1,000 mg/ (Sodium Chloride) 110 mls @ 660 mls/hr IV ONETIME PRN PRN Reason: Bleeding Lactated Ringer's (Ringers, Lactated) 1,000 mls @ 150 mls/hr IV ASDIRECTED [facility] Last Admin: 09/28/21 09:36 Dose: 999 mls/hr Documented by: Ibuprofen (Ibuprofen 400 Mg Tab) 400 mg PO Q4H PRN PRN Reason: Pain (mild 1-3) Ibuprofen (Ibuprofen 800 Mg Tab) 800 mg PO Q6H PRN PRN Reason: Cramping Last Admin: 09/29/21 09:04 Dose: 800 mg Documented by: Lidocaine HCl (Lidocaine 1% 50 Ml Mdv) 50 ml INJECT ONETIME PRN PRN Reason: Laceration repair Methylergonovine Maleate (Methylergonovine 0.2 Mg/1 Ml Amp) 0.2 mg IM ASDIRECTE D PRN PRN Reason: Post Hemorrhage Last Admin: 09/28/21 11:18 Dose: 0.2 mg Documented by: Miscellaneous Medication (Phenylephrine Hcl In 0.9% Nacl 1 Mg/10 Ml Syringe) 0.1 mg IVPUSH Q1M PRN PRN Reason: Hypotension Misoprostol (Misoprostol 200 Mcg Tab) 200 mcg PO ONETIME PRN PRN Reason: Post Hemorrhage Last Admin: 09/28/21 11:53 Dose: 200 mcg Documented by: Nalbuphine HCl (Nalbuphine 10 Mg/1 Ml Vial) 10 mg IVPUSH Q1H PRN PRN Reason: Pain (severe 7-10) Ondansetron HCl (Ondansetron 4 Mg/2 Ml Sdv) 4 mg IVPUSH Q4H PRN PRN Reason: Nausea/Vomiting Last Admin: 09/28/21 07:29 Dose: 4 mg Documented by: Oxycodone HCl (Oxycodone 5 Mg Tab) 5 mg PO Q2H PRN PRN Reason: Pain (severe 7-10) Ropivacaine (Ropivacaine 0.2% 2mg/Ml 200 Ml Bag) 400 mg EPIDUR ASDIRECTED TAVARES Sodium Chloride (Sodium Chloride 0.9% 10 Ml Syringe) 10 ml FLUSH ASDIRECTED PRN PRN Reason: Keep Vein Open Sodium Chloride (Sodium Chloride 0.9% 2.5 Ml Syringe) 2.5 ml FLUSH ASDIRECTED PRN PRN Reason: Keep Vein Open Sodium Chloride (Sodium Chloride 0.9% 20 Ml Sdv) 10 ml IV ASDIRECTED PRN PRN Reason: IV Use Sterile Water (Water For Irrigation,Sterile 1,000 Ml Container) 1,000 ml IRR ASDIRECTED PRN PRN Reason: delivery Witch Chelle (Witch Chelle Medicated Pads 40/Jar) 1 pad TOP ASDIRECTED PRN PRN Reason: comfort care Discontinued Medications Oxytocin/Sodium Chloride (Oxytocin 30 Unit In Ns 0.9% 500 Ml Premix) Confirm Administered Dose 30 unit in 500 mls @ as directed .ROUTE .[facility]-MED ONE Stop: 09/28/21 06:02 Last Admin: 09/28/21 11:18 Dose: 500 mls/hr Documented by: Ropivacaine (Naropin 0.2%) Confirm Administered Dose 200 mls @ as directed .ROUTE .[facility]-MED ONE Stop: 09/28/21 07:05 Cefazolin Sodium/Dextrose 1 gm (/ Premix) 50 mls @ 100 mls/hr IV ONETIME ONE Stop: 09/28/21 13:09 Last Admin: 09/28/21 13:01 Dose: 100 mls/hr Documented by: Misoprostol (Misoprostol 200 Mcg Tab) Confirm Administered Dose 200 mcg .ROUTE .[facility]-MED ONE Stop: 09/28/21 12:18 Misoprostol (Misoprostol 200 Mcg Tab) 200 mcg RECTAL ONETIME ONE Stop: 09/28/21 12:46 Last Admin: 09/28/21 12:37 Dose: 200 mcg Documented by: Tranexamic Acid (Tranexamic Acid 1,000 Mg/10 Ml Amp) Confirm Administered Dose 1,000 mg .ROUTE .[facility]-MED ONE Stop: 09/28/21 08:28 Tranexamic Acid (Tranexamic Acid 1,000 Mg/10 Ml Amp) Confirm Administered Dose 1,000 mg .ROUTE .[facility]-MED ONE Stop: 09/28/21 11:15 Last Admin: 09/28/21 11:20 Dose: 1,000 mg Documented by: - Exam General: Reports: Alert, Oriented HEENT: Reports: Pupils Equal, Pupils Reactive, EOMI, Mucous Membr. Moist/[place] Neck: Reports: Supple Lungs: Reports: Clear to Auscultation, Normal Respiratory Effort Cardiovascular: Reports: Regular Rate, Regular Rhythm GI/Abdominal Exam: Normal Bowel Sounds, Soft, Non-Tender, No Organomegaly, No Distention, No Abnormal Bruit, No Mass, Pelvis Stable (Female) Exam: Normal External Exam, Normal Speculum Exam, Normal Bimanual Exam Rectal (Female) Exam: Normal Exam, Normal Rectal Tone Back Exam: Reports: Normal Inspection, Full Range of Motion Extremities: Normal Inspection, Normal Range of Motion, Non-Tender, No Pedal Edema, Normal Capillary Refill Skin: Reports: Warm, Dry, Intact Wound/Incisions: Reports: Healing Well Neurological: Reports: No New Focal Deficit Psy/Mental Status: Reports: Alert, Normal Affect, Normal Mood
--- NOTE | 2021-09-29 10:28 | PCM48HPAN ---
Post Anesthesia Note - EVALUATION WITHIN 48HRS OF ANESTHETIC Vital Signs in Normal Range: Yes Patient Participated in Evaluation: Yes Respiratory Function Stable: Yes Airway Patent: Yes Cardiovascular Function Stable: Yes Hydration Status Stable: Yes Pain Control Satisfactory: Yes Nausea and Vomiting Control Satisfactory: Yes Mental Status Recovered: Yes Vital Signs: Last Vital Signs Temp 36.2 C 09/29/21 07:40 Pulse 67 09/29/21 07:40 Resp 14 09/29/21 07:40 BP 108/61 09/29/21 07:40 Pulse Ox 98 09/29/21 07:40 - COMMENTS/OBSERVATIONS Free Text/Narrative:: Pt states to being up and walking with no weakness and denies signs and symptoms of infection.
--- NOTE | 2021-09-29 17:57 | PCM.DEL ---
L & D Note - General Info Date of Service: 09/28/21 Mother's Due Date: 10/07/21 - Delivery Note Labor: Spontaneous Delivery Outcome: Livebirth Infant Delivery Method: Spontaneous Vaginal Delivery-Single Presentation: Vertex Nuchal Cord: None Anesthesia Type: Epidural Episiotomy Type: None Laceration: None Suture size: 3-0 Placenta: Intact, Spontaneous Cord: 3 Vessels Estimated Blood Loss: 400 Resuscitation Needed: No Score 1 min: 8 Score 5 min: 9 Delivery Comments (Free Text/Narrative):: 26yo G6 now P6006 s/p at 38w6d GA of a live baby. Apgars 8/9. Delivered TREY, no nuchal cord, No meconium. Vertex and body delivered without difficulty. Cord clamped and cut. Nose and mouth bulb suctioned; Baby placed on Mom's abdomen. Placenta delivered spontaneously, intact. Fundus firm, minimal bleeding. Placenta appears intact with 3 vessel cord. Perineum and vagina inspected, no laceration found EBL 350cc. Hemostasis. Pt tolerated procedure well, recovering in LDR. by her side. - General Info Date of Service: 09/28/21 Admission Dx/Problem (Free Text): Admission Diagnosis/Problem Admission Diagnosis/Problem Functional Status: Reports: Pain Controlled - Patient Data Vitals - Most Recent: Last Vital Signs Temp 97.1 F 09/29/21 07:40 Pulse 67 09/29/21 07:40 Resp 14 09/29/21 07:40 BP 108/61 09/29/21 07:40 Pulse Ox 98 09/29/21 07:40 Weight - Most Recent: 100.698 kg Lab Results Last 24 Hours: Laboratory Results - last 24 hr 09/29/21 Range/Units 06:40 Hgb 8.7 L (12.0-16.0) g/dL Hct 28.0 L (36.0-46.0) % Med Orders - Current: Current Medications Discontinued Medications Acetaminophen (Acetaminophen 500 Mg Tab) 500 mg PO Q4H PRN PRN Reason: Pain (mild 1-3) Acetaminophen (Acetaminophen 500 Mg Tab) 1,000 mg PO Q4H PRN PRN Reason: Pain (mild 1-3) Benzocaine/Menthol (Benzocaine/Menthol 20%-0.5% [place] 78 Gm Cannister) 78 gm TOP ASDIRECTED PRN PRN Reason: Perineal Comfort Measure Bisacodyl (Bisacodyl 10 Mg Supp) 10 mg RECTAL ONETIME PRN PRN Reason: Constipation Butorphanol Tartrate (Butorphanol 1 Mg/Ml Sdv) 1 mg IVPUSH Q1H PRN PRN Reason: Pain (severe 7-10) Last Admin: 09/28/21 12:27 Dose: 1 mg Documented by: Carboprost Tromethamine (Carboprost Tromethamine 250 Mcg/1 Ml Amp) 250 mcg IM ASDIRECTED PRN PRN Reason: Post Hemorrhage Docusate Sodium (Docusate Sodium 100 Mg Cap) 100 mg PO Q12H PRN PRN Reason: Constipation Emollient Ointment (Lanolin 100% Cream 7 Gm Tube) 0 gm TOP ASDIRECTED PRN PRN Reason: Sore Nipples Ephedrine Sulfate (Ephedrine 50 Mg/Ml Sdv) 10 mg IVPUSH Q1M PRN PRN Reason: Hypotension Oxytocin/Sodium Chloride (Oxytocin 30 Unit In Ns 0.9% 500 Ml Premix) 30 unit in 500 mls @ 500 mls/hr IV TITRATE [facility] Last Admin: 09/28/21 09:36 Dose: 500 mls/hr Documented by: Tranexamic Acid 1,000 mg/ (Sodium Chloride) 110 mls @ 660 mls/hr IV ONETIME PRN PRN Reason: Bleeding Lactated Ringer's (Ringers, Lactated) 1,000 mls @ 150 mls/hr IV ASDIRECTED [facility] Last Admin: 09/28/21 09:36 Dose: 999 mls/hr Documented by: Oxytocin/Sodium Chloride (Oxytocin 30 Unit In Ns 0.9% 500 Ml Premix) Confirm Administered Dose 30 unit in 500 mls @ as directed .ROUTE .STK-MED ONE Stop: 09/28/21 06:02 Last Admin: 09/28/21 11:18 Dose: 500 mls/hr Documented by: Ropivacaine (Naropin 0.2%) Confirm Administered Dose 200 mls @ as directed .ROUTE .STK-MED ONE Stop: 09/28/21 07:05 Cefazolin Sodium/Dextrose 1 gm (/ Premix) 50 mls @ 100 mls/hr IV ONETIME ONE Stop: 09/28/21 13:09 Last Admin: 09/28/21 13:01 Dose: 100 mls/hr Documented by: Ibuprofen (Ibuprofen 400 Mg Tab) 400 mg PO Q4H PRN PRN Reason: Pain (mild 1-3) Ibuprofen (Ibuprofen 800 Mg Tab) 800 mg PO Q6H PRN PRN Reason: Cramping Last Admin: 09/29/21 09:04 Dose: 800 mg Documented by: Lidocaine HCl (Lidocaine 1% 50 Ml Mdv) 50 ml INJECT ONETIME PRN PRN Reason: Laceration repair Methylergonovine Maleate (Methylergonovine 0.2 Mg/1 Ml Amp) 0.2 mg IM ASDIRECTED PRN PRN Reason: Post Hemorrhage Last Admin: 09/28/21 11:18 Dose: 0.2 mg Documented by: Miscellaneous Medication (Phenylephrine Hcl In 0.9% Nacl 1 Mg/10 Ml Syringe) 0.1 mg IVPUSH Q1M PRN PRN Reason: Hypotension Misoprostol (Misoprostol 200 Mcg Tab) 200 mcg PO ONETIME PRN PRN Reason: Post Hemorrhage Last Admin: 09/28/21 11:53 Dose: 200 mcg Documented by: Misoprostol (Misoprostol 200 Mcg Tab) Confirm Administered Dose 200 mcg .ROUTE .STK-MED ONE Stop: 09/28/21 12:18 Misoprostol (Misoprostol 200 Mcg Tab) 200 mcg RECTAL ONETIME ONE Stop: 09/28/21 12:46 Last Admin: 09/28/21 12:37 Dose: 200 mcg Documented by: Nalbuphine HCl (Nalbuphine 10 Mg/1 Ml Vial) 10 mg IVPUSH Q1H PRN PRN Reason: Pain (severe 7-10) Ondansetron HCl (Ondansetron 4 Mg/2 Ml Sdv) 4 mg IVPUSH Q4H PRN PRN Reason: Nausea/Vomiting Last Admin: 09/28/21 07:29 Dose: 4 mg Documented by: Oxycodone HCl (Oxycodone 5 Mg Tab) 5 mg PO Q2H PRN PRN Reason: Pain (severe 7-10) Ropivacaine (Ropivacaine 0.2% 2mg/Ml 200 Ml Bag) 400 mg EPIDUR ASDIRECTED [place] Sodium Chloride (Sodium Chloride 0.9% 10 Ml Syringe) 10 ml FLUSH ASDIRECTED PRN PRN Reason: Keep Vein Open Sodium Chloride (Sodium Chloride 0.9% 2.5 Ml Syringe) 2.5 ml FLUSH ASDIRECTED PRN PRN Reason: Keep Vein Open Sodium Chloride (Sodium Chloride 0.9% 20 Ml Sdv) 10 ml IV ASDIRECTED PRN PRN Reason: IV Use Sterile Water (Water For Irrigation,Sterile 1,000 Ml Container) 1,000 ml IRR ASDIRECTED PRN PRN Reason: delivery Tranexamic Acid (Tranexamic Acid 1,000 Mg/10 Ml Amp) Confirm Administered Dose 1,000 mg .ROUTE .STK-MED ONE Stop: 09/28/21 08:28 Tranexamic Acid (Tranexamic Acid 1,000 Mg/10 Ml Amp) Confirm Administered Dose 1,000 mg .ROUTE .STK-MED ONE Stop: 09/28/21 11:15 Last Admin: 09/28/21 11:20 Dose: 1,000 mg Documented by: Jamil Corbett (Jamil Corbett Medicated Pads 40/Jar) 1 pad TOP ASDIRECTED PRN PRN Reason: comfort care - Exam General: Alert, Oriented - Problem List & Annotations (1) (normal spontaneous vaginal delivery) SNOMED Code(s): 35143368, 205118542 Code(s): O80 - ENCOUNTER FOR FULL-TERM UNCOMPLICATED DELIVERY Status: Acute Priority: High - Problem List Review Problem List Initiated/Reviewed/Updated: Yes - Assessment Assessment:: S/P doing well. - Plan Plan:: 26yo G6 now P6006 s/p at 38w6d GA. Mom and baby are doing well. P: Routine
== END 2021-09-29 12:24 | disposition home or self-care (01) | DRG 560 ==
LOC: MW.OBCHECK 05:19 → MW.OB 05:20 → MW.OBCHECK 05:23 → MW.OB 05:27 → MW.OBCHECK 05:27 → MW.OB 05:56 → OBSVTOIN 09:29 → MW.OB 15:00
PROVIDERS: ADMIT Obstetrics & Gynecology; ATTEND Obstetrics & Gynecology
PROC: 10E0XZZ Delivery of Products of Conception, External Approach (ICD-10-PCS; principal; 2021-09-28)
PROC: 3E0R3BZ Introduction of Anesthetic Agent into Spinal Canal, Percutaneous Approach (ICD-10-PCS; 2021-09-28)
PROC: 00HU33Z Insertion of Infusion Device into Spinal Canal, Percutaneous Approach (ICD-10-PCS; 2021-09-28)
DX: O80 Encounter for full-term uncomplicated delivery (principal); Z3A.38 38 weeks gestation of pregnancy; Z37.0 Single live birth; Z20.822 Contact with and (suspected) exposure to COVID-19; Z88.0 Allergy status to penicillin; Z88.1 Allergy status to other antibiotic agents; Z88.5 Allergy status to narcotic agent
CPT/HCPCS: 36415; 59025; 59409; 85014; 85018; 85027; 86592; 86850; 86900; 86901; 86902; 86920; 86921; 86922; A9270-GY; J0595; J0690; J2210; J2405; J2590; J2795; J7120; U0002

== ENCOUNTER 2022-11-30 03:11 | Inpatient (IN) | payer BC ==
[2022-11-30] MEDS ORDERED: Water For Irrigation,Sterile 1,000 ML Container IRR PRN ×2 (04:11→08:22)
[2022-11-30] MEDS ORDERED: Nalbuphine HCl 10 MG/ 1ML Amp IVPUSH PRN (04:11)
[2022-11-30] MEDS ORDERED: Sodium Chloride 0.9% 10 ML Syringe FLUSH PRN ×2 (04:11→08:22)
[2022-11-30] MEDS ORDERED: Acetaminophen 325 MG Tab PO PRN (04:11)
[2022-11-30] MEDS ORDERED: Tranexamic Acid 1,000 MG in Sodium Chloride 0.9% 100 ML IV PRN ×2 (04:11→08:22)
[2022-11-30] MEDS ORDERED: Methylergonovine 0.2 MG/1 ML Amp IM PRN ×2 (04:11→08:22)
[2022-11-30] MEDS ORDERED: Carboprost Tromethamine 250 MCG/1 ML Amp IM PRN ×2 (04:11→08:22)
[2022-11-30] MEDS ORDERED: Lidocaine 1% 50 ML MDV INJECT PRN ×2 (04:11→08:22)
[2022-11-30] MEDS ORDERED: Ondansetron 4 MG/2 ML SDV IVPUSH PRN (04:11)
[2022-11-30] MEDS ORDERED: Sodium Chloride 0.9% 2.5 ML Syringe FLUSH PRN ×2 (04:11→08:22)
[2022-11-30] MEDS ORDERED: Sodium Chloride 0.9% 20 ML SDV IV PRN ×2 (04:11→08:22)
[2022-11-30] MEDS ORDERED: Terbutaline 1 MG/ML SDV SUBCUT PRN ×2 (04:11→10:01)
[2022-11-30] MEDS ORDERED: Misoprostol 200 MCG Tab PO PRN ×2 (04:11→08:22)
[2022-11-30] MEDS ORDERED: Lactated Ringers 1,000 ML IV SCH ×2 (04:15→08:30)
[2022-11-30] MEDS ORDERED: Oxytocin/0.9 % Sodium Chloride 30 UNIT/500 ML BAG IV SCH ×3 (04:15→10:15)
[2022-11-30] MEDS ORDERED: Misoprostol 25 MCG (1/4 of 100 MCG) Tab PO PRN (05:00)
[2022-11-30] MEDS ORDERED: Misoprostol 25 MCG (1/4 of 100 MCG) Tab VAG PRN ×3 (05:00→10:01)
[2022-11-30] MEDS: Oxytocin/0.9 % Sodium Chloride 30 UNIT/500 ML BAG IV SCH ×2 (10:00→10:25)
[2022-11-30] MEDS ORDERED: Bupivacaine 0.5% 10 ML SDV ONE (11:36)
[2022-11-30] MEDS ORDERED: Ropivacaine/PF 400 MG/200 ML PCA ONE (11:36)
[2022-11-30] MEDS ORDERED: ePHEDrine 50 MG/ML SDV IVPUSH PRN ×2 (12:12)
[2022-11-30] MEDS ORDERED: Phenylephrine HCl In 0.9% NaCl 1 MG/10 ML Vial IVPUSH PRN (12:12)
[2022-11-30] MEDS ORDERED: Phenylephrine HCl In 0.9% NaCl 1 MG/10 ML Vial IVPUSH SCH (12:15)
[2022-11-30] MEDS ORDERED: Ropivacaine HCl/PF 400 MG in Premix Bag 1 BAG EPIDUR SCH (12:15)
[2022-11-30] MEDS ORDERED: Ibuprofen 400 MG Tab PO PRN (14:05)
[2022-11-30] MEDS ORDERED: Acetaminophen 500 MG Tab PO PRN (14:05)
[2022-11-30] MEDS ORDERED: Lanolin 100% Cream 7 GM Tube TOP PRN (14:05)
[2022-11-30] MEDS ORDERED: Witch Hazel Medicated Pads 40/Jar TOP PRN (14:05)
[2022-11-30] MEDS ORDERED: Ibuprofen 800 MG Tab PO PRN (14:05)
[2022-11-30] MEDS ORDERED: Bisacodyl 10 MG Supp RECTAL PRN (14:05)
[2022-11-30] MEDS ORDERED: Benzocaine/Menthol 20%-0.5% Spray 78 GM Cannister TOP PRN (14:05)
[2022-11-30] MEDS ORDERED: Docusate Sodium 100 MG Cap PO PRN (14:05)
[2022-11-30] MEDS: Acetaminophen 500 MG Tab PO PRN ×2 (18:12→22:12)
== END 2022-12-01 16:00 | disposition home or self-care (01) | DRG 560 ==
LOC: MW.OBCHECK 03:11 → MW.OB 03:14 → MW.OBCHECK 04:11 → OBSVTOIN 13:06 → MW.OB 16:40
PROVIDERS: ADMIT Obstetrics & Gynecology; ATTEND Obstetrics & Gynecology Obstetrics
PROC: 10E0XZZ Delivery of Products of Conception, External Approach (ICD-10-PCS; principal; 2022-11-30)
PROC: 3E0R3BZ Introduction of Anesthetic Agent into Spinal Canal, Percutaneous Approach (ICD-10-PCS; 2022-11-30)
PROC: 00HU33Z Insertion of Infusion Device into Spinal Canal, Percutaneous Approach (ICD-10-PCS; 2022-11-30)
DX: O99.344 Other mental disorders complicating childbirth (principal); Z20.822 Contact with and (suspected) exposure to COVID-19; F32.A Depression, unspecified; F41.9 Anxiety disorder, unspecified; O69.81X0 Labor and delivery complicated by cord around neck, without compression, not applicable or unspecified; Z86.19 Personal history of other infectious and parasitic diseases; Z88.0 Allergy status to penicillin; Z88.1 Allergy status to other antibiotic agents; Z3A.38 38 weeks gestation of pregnancy; Z37.0 Single live birth; Z88.8 Allergy status to other drugs, medicaments and biological substances
CPT/HCPCS: 01967; 36415; 85014; 85018; 85027; 86592; 86850; 86900; 86901; 86902; 86920; 86921; 86922; A9270-GY; J2210; J2590; J2795; J3490; J7120; U0002